=== PATIENT | female | born 1955 | race Caucasian/White ===

== ENCOUNTER 2016-12-20 07:55 | Day surgery (SDC) | payer MEDICAID, MEDICARE ==
[2016-12-19 12:11] LABS: BLOOD UREA NITROGEN 20 mg/dL (7-18)
[2016-12-19 12:14] LABS: ASPARTATE AMINO TRANSFERASE 14 U/L (15-37)
[~2016-12-20] VITALS: Ht 162.6 cm; Wt 86.5 kg
[~2016-12-20 07:55] MED LIST: ALBU18HF INH; AMLO5TAB2 PO; ATOR10TA9 PO; BUPR100T11 PO; ESOM40CA PO; FLUT12AE5 NS; GABA300C10 PO; HYDR-3138 PO; LISI-170 PO; TIOT18CA INH; TIZA4TAB PO; VARE1TAB21 PO; ZOLP10TA5 PO
[2016-12-20] MEDS ORDERED: LACTATED RINGERS 1,000 ML IV SCH (08:16)
[2016-12-20] MEDS ORDERED: LIDOCAINE 1%-EPI 1:100K, 50ML ONE (08:28)
[2016-12-20] MEDS ORDERED: OXYMETAZOLINE NASAL SPRAY 0.05%, 15ML ONE (08:28)
[2016-12-20 08:39] VITALS: BP 124/80
[2016-12-20] MEDS ORDERED: BACITRACIN OINT 500U/GM, 15 GM ONE (09:18)
[2016-12-20] MEDS ORDERED: FENTANYL PF 250 MCG/5ML ONE (09:24)
[2016-12-20] MEDS ORDERED: hydrALAzine 20 MG/ML, 1ML IV PRN (09:30)
[2016-12-20] MEDS ORDERED: ACETAMINOPHEN 325 MG TABLET PO PRN (09:30)
[2016-12-20] MEDS ORDERED: HYDROmorphone 1 MG/ML, 1ML IV PRN (09:30)
[2016-12-20] MEDS ORDERED: MEPERIDINE/PF 25MG/0.5ML IVPush PRN (09:30)
[2016-12-20] MEDS ORDERED: PROMETHAZINE 25 MG/ML, 1ML IV PRN (09:30)
[2016-12-20] MEDS ORDERED: ONDANSETRON 2MG/ML, 2ML IVPush PRN (09:30)
[2016-12-20] MEDS ORDERED: METOPROLOL 1 MG/ML, 5ML IV PRN (09:30)
[2016-12-20] MEDS ORDERED: EPHEDRINE 50 MG/ML, 1ML IVPush PRN (09:30)
[2016-12-20] MEDS ORDERED: FENTANYL PF 100 MCG/2ML IV PRN (09:30)
[2016-12-20] MEDS ORDERED: LABETALOL 5MG/ML, 20ML IV PRN (09:30)
[2016-12-20] MEDS ORDERED: OXYcodone 5 MG/5 ML ORAL.SOL UDC PO PRN (09:30)
[2016-12-20] MEDS ORDERED: PHENYLEPHRINE 10 MG/ML ONE (09:35)
[2016-12-20] MEDS ORDERED: ONDANSETRON 2MG/ML, 2ML ONE (09:35)
[2016-12-20] MEDS ORDERED: METOCLOPRAMIDE 5 MG/ML, 2ML ONE (09:35)
[2016-12-20] MEDS ORDERED: DEXAMETHASONE 4 MG/ML, 1ML ONE (09:35)
[2016-12-20] MEDS ORDERED: PROPOFOL 10 MG/ML, 20ML ONE (09:35)
[2016-12-20] MEDS ORDERED: KETOROLAC 30 MG/1 ML ONE (09:35)
[2016-12-20] MEDS ORDERED: SUCCINYLCHOLINE 20 MG/ML, 10ML ONE (09:35)
[2016-12-20] MEDS ORDERED: FENTANYL PF 100 MCG/2ML ONE (10:37)
[2016-12-20] MEDS ORDERED: OXYcodone 5 MG/5 ML ORAL.SOL UDC ONE (10:41)
== END 2016-12-20 16:00 | disposition home or self-care (01) ==
LOC: OUT 07:55
PROVIDERS: ATTEND Otolaryngology
DX: J34.2 Deviated nasal septum (principal); G47.33 Obstructive sleep apnea (adult) (pediatric); J44.9 Chronic obstructive pulmonary disease, unspecified; J34.3 Hypertrophy of nasal turbinates; I10 Essential (primary) hypertension; K21.9 Gastro-esophageal reflux disease without esophagitis; F17.210 Nicotine dependence, cigarettes, uncomplicated; E66.9 Obesity, unspecified; Z68.32 Body mass index [BMI] 32.0-32.9, adult
CPT/HCPCS: 30140; 30520; 36415; 80053; 93005; J0330; J1100; J1885; J2370; J2405; J2704; J2765; J3010; J7120